=== PATIENT | female | born 1995 | race Caucasian/White ===

== ENCOUNTER 2018-11-28 12:01 | Emergency (ER) | payer BC, OTHER ==
[2018-11-28] MEDS ORDERED: Adacel (T-DAP) 0.5 ML SYRINGE ONE (12:17)
[2018-11-28] MEDS ORDERED: Triple Antibiotic Oint 1 GM Packet ONE (12:43)
== END 2018-11-28 13:15 | disposition home or self-care (01) ==
LOC: ERS 12:01
DX: S61.531A Puncture wound without foreign body of right wrist, initial encounter (principal); S61.432A Puncture wound without foreign body of left hand, initial encounter; S31.139A Puncture wound of abdominal wall without foreign body, unspecified quadrant without penetration into peritoneal cavity, initial encounter; S51.832A Puncture wound without foreign body of left forearm, initial encounter; S51.811A Laceration without foreign body of right forearm, initial encounter; S61.511A Laceration without foreign body of right wrist, initial encounter; S61.512A Laceration without foreign body of left wrist, initial encounter; S60.512A Abrasion of left hand, initial encounter; S30.811A Abrasion of abdominal wall, initial encounter; W54.0XXA Bitten by dog, initial encounter
CPT/HCPCS: 90471; 90715